=== PATIENT | female | born 1960 | race Caucasian/White ===

== ENCOUNTER 2023-09-25 10:27 | Emergency (ER) | payer OTHER, SELFPAY ==
[2023-09-25 11:07] VITALS: BP 98/61; PULSE 78; RESP 16; TEMP 36.4; O2SAT 97; BMI 22.8
--- NOTE | 2023-09-25 12:09 | CT_ITS ---
Patient: RO VERDUGO Facility:?[facility] RIS Patient ID:?[id number] Site Patient ID:?[id number]. Site :?[id number] Study:?CT-Abdomen/Pelvis W/ 67CC ISOVUE 370-09/25/2023 1:51:10 PM Ordering Physician:HEATH Final Report: Indication: Abdominal pain Technique: Volumetric multidetector CT images of the abdomen and pelvis were obtained after the administration of intravenous contrast. 67 cc Isovue 370 low osmolar intravenous contrast Comparison: None available. Findings: There is bibasilar atelectasis and parenchymal scar. The liver is normal in attenuation without intrahepatic biliary ductal dilatation. The portal vein is patent. The gallbladder is unremarkable without evidence of radiopaque calculus. There is no significant common biliary ductal dilatation or abrupt cut off. The spleen is normal in enhancement and size. The stomach and duodenum are grossly unremarkable. The pancreas is normal in enhancement without significant atrophy. The adrenal glands are unremarkable. The kidneys demonstrate preserved corticomedullary differentiation without evidence of obstructive uropathy. Moderate stool is seen throughout the colon with minimal distal colonic diverticulosis without definite evidence of diverticulitis. There is minimal fluid-filled mid to distal small bowel which may represent mild enteritis change. The appendix is unremarkable. There is no significant mesenteric, retroperitoneal, or pelvic sidewall lymph nodes. The aorta is nonaneurysmal. There is no significant atherosclerotic disease appreciated. The solid pelvic viscera are grossly unremarkable. There is no free fluid or free air. There is mild diastasis of the rectus musculature with a small fat containing umbilical hernia. The lumbar vertebral body heights are grossly maintained in satisfactory alignment without evidence of displaced fracture, lytic or blastic lesion. Impression: Mild nonspecific fluid-filled central small bowel likely representing minimal enteritis change. Otherwise, no additional acute intra-abdominal abnormalities identified. Please note that all CT scans at this facility use dose modulation, iterative reconstruction, and/or weight-based dosing when appropriate to reduce radiation dose to as low as reasonably achievable. Dictated by Trenton Humphries MD @ 09/25/2023 2:02:01 PM Signed by:?Trenton Humphries MD @09/25/2023 2:02:01 PM (Electronic Signature)
--- NOTE | 2023-09-25 12:11 | ED.GENADULT ---
HPI - General Adult General Chief complaint: Urogenital Problems, Female Stated complaint: Vaginal pain Time Seen by Provider: 09/25/23 10:48 History of Present Illness HPI narrative: This 62-year-old female comes in with her and son. She has significant dementia and is a very poor historian. She and her return from floor to a few days ago. Her son states that she seems bloated in her abdomen and has been complaining of occasional abdominal pain and dysuria with vaginal itching. At the time of my initial visit the patient states that she is feeling normal and does not have any symptoms but it is clear that she has significant dementia. Related Data Previous Rx's Medication Instructions Recorded conjugated estrogens 0.625 mg/gram 0.625 mg vaginal DAILY #30 grams 09/25/23 vaginal cream (Premarin) Allergies Allergy/AdvReac Type Severity Reaction Status Date / Time No Known Drug Allergies Allergy Verified 09/25/23 13:47 Review of Systems Status of ROS: Reports: unobtainable due to mental status PFSH PFS Social History Smoking Status: Never smoker Do you use any of these nicotine containing products: None Second hand tobacco smoke exposure: No How often do you have a drink containing alcohol: never AUDIT-C Alcohol total score: 0 Non-prescribed substance use: denies use Exam Narrative: Exam Narrative: Constitutional: Well-developed, well-nourished, no acute distress. HEENT: Normocephalic, atraumatic. Neck: Normal range of motion. Nontender. Supple. Heart: Regular. No murmurs. Normal rate. Intact distal pulses. Lungs: Clear to auscultation. No chest discomfort. No wheezes, rhonchi, or rales. Abdomen: Normal bowel sounds. Nontender. No rebound tenderness. Abdomen seems mildly distended. She has no discomfort when palpating deeply throughout her abdomen. Genitalia: Deferred. Back: No midline tenderness. Normal range of motion. Extremities: Normal range of motion. No injury. Skin: Intact. No rash. Warm. No erythema or pallor. Neurologic: No altered sensation. No weakness. Alert and oriented. Psychiatric: Dementia. Nursing notes and vitals signs are reviewed. Const: Vital Signs, click to edit/add: Vital Signs - 24 hr 09/25/23 11:07 09/25/23 14:15 Temperature 97.5 F L Pulse Rate [Pulse Oximeter] 78 65 Respiratory Rate 16 18 Blood Pressure [Ri ght Upper Arm] 98/61 125/67 Pulse Oximetry 97 99 Oxygen Delivery Me thod Room Air Room Air Course Vital Signs Vital signs: Initial Vital Signs Temperature 97.5 F L 09/25/23 11:07 Temperature Source Temporal Artery Scan 09/25/23 11:07 Pulse Rate 78 09/25/23 11:07 Respiratory Rate 16 09/25/23 11:07 Blood Pressure 98/61 09/25/23 11:07 Blood Pressure Mean 73 09/25/23 11:07 Blood Pressure Position Sitting 09/25/23 11:07 Pulse Oximetry 97 09/25/23 11:07 Oxygen Delivery Method Room Air 09/25/23 11:07 Vital Signs Temperature 97.5 F L 09/25/23 11:07 Pulse Rate 78 09/25/23 11:07 Respiratory Rate 16 09/25/23 11:07 Blood Pressure 98/61 09/25/23 11:07 Pulse Oximetry 97 09/25/23 11:07 Oxygen Delivery Method Room Air 09/25/23 11:07 Temperature 97.5 F L 09/25/23 11:07 Pulse Rate 65 09/25/23 14:15 Respiratory Rate 18 09/25/23 14:15 Blood Pressure 125/67 09/25/23 14:15 Pulse Oximetry 99 09/25/23 14:15 Oxygen Delivery Method Room Air 09/25/23 14:15 Medical Decision Making [facility] Narrative Medical decision making narrative: This patient comes in with other family members concerned about some possibility with her abdomen or urinary tract or vaginal dryness and itching. The patient has significant dementia and is a very poor historian. A CT scan with IV contrast was obtained and returns with no significant acute findings. Urinalysis also is reassuring as are blood tests. This patient likely has some vaginal dryness and may benefit from an estrogen cream. I did provide a prescription for this but encouraged her to follow-up with her primary physician in this regard. Lab Data Labs: Lab Results 09/25/23 09/25/23 Range/Units 12:24 13:50 WBC 5.50 (4.50-11.00) K/uL RBC 4.27 (4.00-5.20) m/uL Hgb 13.0 (12.0-16.0) gm/dL Hct 41.1 (33.0-51.0) % MCV 96 (80-100) fL MCH 30 (26-34) pg MCHC 32 (32-36) gm/dL RDW Coeff of Raghavendra 11.8 (11.5-15.5) % Plt Count 182 (140-440) K/uL Neut % (Auto) 56.9 (42.0-72.0) % Lymph % (Auto) 28.0 (20-44) % Lane % (Auto) 11.3 H (0.0-11.0) % Eos % (Auto) 3.1 (0.0-7.0) % Baso % (Auto) 0.5 (0.0-3.0) % Neut # (Auto) 3.13 (1.7-7.0) K/uL Lymph # (Auto) 1.54 (0.90-2.90) K/uL Lane # (Auto) 0.60 (0.00-0.90) K/UL Eos # (Auto) 0.17 (0.00-0.50) K/uL Baso # (Auto) 0.03 (0.00-0.30) K/uL Abs Immat Gran (auto) 0.01 (0.00-0.30) K/uL Imm/Tot Granulo (auto) 0.2 % Sodium 141 (135-149) mmol/L Potassium 4.2 (3.6-5.1) mmol/L Chloride 106 (96-114) mmol/L Carbon Dioxide 33 H (20-32) mmol/L Anion Gap 2 L (7-15) mEq/L BUN 25 (7-30) mg/dL Creatinine 0.7 (0.5-1.5) mg/dL Estimated Creat Clear 51.14 Estimated GFR 97 ml/min Glucose 87 (60-115) mg/dL Calcium 9.3 (8.4-10.6) mg/dL Urine Color Yellow (Yellow) Urine Appearance Clear (Clear) Urine pH 7.0 (5.0-8.5) Ur Specific [place] 1.020 (1.000-1.030) Urine Protein Negative (Negative) Urine Glucose (UA) Negative (Negative) Urine Ketones Negative (Negative) Urine Blood Negative (Negative) Urine Nitrite Negative (Negative) Urine Bilirubin Negative (Negative) Urine Urobilinogen 0.2 (0.2-1.0) Ur Leukocyte Esterase Negative (Negative) Urine RBC 0-2 (0-2) Urine WBC 0-2 (0-5) Ur Squamous Epith Cells Few (None-Few) Urine Bacteria None (None) Discharge Plan Discharge Clinical Impression: Vaginitis Patient Disposition: Home w/ Parent or Adult Condition: Stable Additional Instructions: Use medicine as prescribed. Follow up with primary physician for ongoing management. Return if worsening. Prescriptions: New Premarin 0.625 mg/gram cream 0.625 mg vaginal DAILY Qty: 30 2RF Rx Instructions: off 5 days; repeat cycle Follow Up/Referrals: Dasia Mcghee PA-C [Primary Care Provider] - Stand Alone Forms: [employer] Info Instructions
[2023-09-25 12:33] LABS: Basophils Absolute Auto 0.03 K/uL (0.00-0.30); Basophils Percent Auto 0.5 % (0.0-3.0); Eosinophils Absolute Auto 0.17 K/uL (0.00-0.50); Eosinophils Percent Auto 3.1 % (0.0-7.0); Hematocrit 41.1 % (33.0-51.0); Immature Granulocytes Abs Auto 0.01 K/uL (0.00-0.30); Immature Granulocytes Pct Auto 0.2 %; Lymphocytes Absolute Auto 1.54 K/uL (0.90-2.90); Mean Corpuscular HGB Conc 32 gm/dL (32-36); Mean Corpuscular Hemoglobin 30 pg (26-34); Mean Corpuscular Volume 96 fL (80-100); Monocytes Percent Auto 11.3 % (0.0-11.0); Neutrophils Absolute Auto 3.13 K/uL (1.7-7.0); Neutrophils Percent Auto 56.9 % (42.0-72.0); Platelet Count* 182 K/uL (140-440); RDW Coefficient of Variation % 11.8 % (11.5-15.5); Red Blood Count 4.27 m/uL (4.00-5.20)
[2023-09-25 12:36] LABS: Slide Review Reflex No
[2023-09-25 12:47] LABS: Chloride* 106 mmol/L (96-114); Potassium* 4.2 mmol/L (3.6-5.1); Sodium* 141 mmol/L (135-149)
[2023-09-25 12:50] LABS: Anion Gap 2 mEq/L (7-15); Blood Urea Nitrogen* 25 mg/dL (7-30); Carbon Dioxide* 33 mmol/L (20-32); Creatinine* 0.7 mg/dL (0.5-1.5); Est. Creatinine Clearance* 51.14; Estimated Glomerular Filt Rate 97 ml/min; Glucose* 87 mg/dL (60-115)
[2023-09-25 12:51] LABS: Calcium* 9.3 mg/dL (8.4-10.6)
[2023-09-25 13:57] LABS: Appearance Urine Clear (Clear); Bilirubin Urine Negative (Negative); Blood Urine Negative (Negative); Color Urine Yellow (Yellow); Glucose Urine Negative (Negative); Ketones Urine Negative (Negative); Leukocyte Esterase Urine Negative (Negative); Nitrite Urine Negative (Negative); Protein Urine Negative (Negative); Urobilinogen Urine 0.2 (0.2-1.0)
[2023-09-25 14:08] LABS: RBC Urine 0-2 (0-2); Squamous Epithelial Cell Urine Few (None-Few); WBC Urine 0-2 (0-5)
[2023-09-25 14:15] VITALS: BP 125/67; PULSE 65; RESP 18; O2SAT 99
== END 2023-09-25 14:54 | disposition home or self-care (01) ==
PROVIDERS: Emergency Provider Emergency Medicine Emergency Medical Services; PCP Physician Assistant Medical
DX: N76.0 Acute vaginitis (principal)
CPT/HCPCS: 36415; 74177; 80048; 81001; 85025; 99284; Q9967

== ENCOUNTER 2024-02-18 13:04 | Emergency (ER) | payer OTHER, SELFPAY ==
[2024-02-18] VITALS (8 sets, daily range): BP systolic 106–133; BP diastolic 71–114; PULSE 74–83; RESP 18; TEMP 36.6; O2SAT 94–100
--- NOTE | 2024-02-18 15:03 | CRLHL7_ITS ---
For Patients: As a result of the Century Cures Act, medical imaging exams and procedure reports are released immediately into your electronic medical record. You may view this report before your referring provider. If you have questions, please contact your health care provider. INDICATION: unsteady, falling. Does have frontal temporal dementia TECHNIQUE: CT of the head without contrast. Coronal and sagittal reformats. Bone and soft tissue algorithms. COMPARISON: No prior studies available for comparison at this institution. FINDINGS: No acute intracranial hemorrhage or extra-axial collection. No evidence of acute cortical infarction. No mass effect or midline shift. Moderate generalized parenchymal volume loss and marked atrophy of the bilateral hippocampi and anterior temporal lobes. Moderate regions of decreased attenuation within the periventricular and subcortical white matter of both cerebral hemispheres most likely reflect chronic microvascular ischemic disease and age related change in this patient. Vascular calcifications within the carotid siphons. Orbital contents are normal. No calvarial fractures. No lytic or sclerotic osseous lesions within the calvarium or skull base. Mild mucosal thickening in the left frontal sinus. Scalp and other imaged soft tissue structures are normal. Mastoid air cells are clear. Leftward deviation of the nasal septum. IMPRESSION: 1. No acute intracranial abnormality. 2. Moderate generalized parenchymal volume loss and marked atrophy of the bilateral hippocampi and anterior temporal lobes. 3. Moderate chronic small-vessel ischemic changes. Please note that all CT scans at this facility use dose modulation, iterative reconstruction, and/or weight-based dosing when appropriate to reduce radiation dose to as low as reasonably achievable. Dictated by Celestino Lipscomb MD @ 02/18/2024 4:23:29 PM (Electronically Signed)
--- NOTE | 2024-02-18 15:03 | CRLHL7_ITS ---
For Patients: As a result of the Century Cures Act, medical imaging exams and procedure reports are released immediately into your electronic medical record. You may view this report before your referring provider. If you have questions, please contact your health care provider. INDICATION: Weakness, unsteady, falling, frontotemporal dementia, acute stroke. TECHNIQUE: CTA neck with contrast bolus tracking, 3D angiographic rendering using maximum intensity projection (MIP) and images permanently archived. FINDINGS: There is no significant carotid artery stenosis or dissection. There is no significant vertebral artery stenosis or dissection. The soft tissues of the neck are within normal limits. The cervical spine is in normal alignment. IMPRESSION: Unremarkable neck CTA. No significant carotid or vertebral artery stenosis or dissection. Please note that all CT scans at this facility use dose modulation, iterative reconstruction, and/or weight-based dosing when appropriate to reduce radiation dose to as low as reasonably achievable. Dictated by Nathanael Burnett MD @ 02/19/2024 4:10:04 PM (Electronically Signed)
--- NOTE | 2024-02-18 15:03 | CRLHL7_ITS ---
For Patients: As a result of the Century Cures Act, medical imaging exams and procedure reports are released immediately into your electronic medical record. You may view this report before your referring provider. If you have questions, please contact your health care provider. INDICATION: Weakness. TECHNIQUE: Chest 2 views. COMPARISON: None. FINDINGS: Cardiovascular and mediastinum: Heart size is normal. Unremarkable mediastinum. Lungs and pleural spaces: Lungs are clear. No sign of infiltrate or mass. No sign of pleural effusion. No pneumothorax. Bones and soft tissues: No significant findings. IMPRESSION: Negative chest. Dictated by Mart Lopez MD @ 02/18/2024 5:13:04 PM (Electronically Signed)
--- NOTE | 2024-02-18 15:03 | CRLHL7_ITS ---
For Patients: As a result of the Century Cures Act, medical imaging exams and procedure reports are released immediately into your electronic medical record. You may view this report before your referring provider. If you have questions, please contact your health care provider. INDICATION: Weakness, unsteady, falling, frontotemporal dementia, acute stroke. TECHNIQUE: CTA head with contrast bolus tracking, 3D angiographic rendering using maximum intensity projection (MIP) and images permanently archived. FINDINGS: There is normal opacification of the intracranial vasculature. There is no large vessel occlusion. No aneurysm is identified. IMPRESSION: Unremarkable head CTA. Please note that all CT scans at this facility use dose modulation, iterative reconstruction, and/or weight-based dosing when appropriate to reduce radiation dose to as low as reasonably achievable. Dictated by Nathanael Burnett MD @ 02/19/2024 4:09:03 PM (Electronically Signed)
--- NOTE | 2024-02-18 15:04 | CRLHL7_ITS ---
For Patients: As a result of the Century Cures Act, medical imaging exams and procedure reports are released immediately into your electronic medical record. You may view this report before your referring provider. If you have questions, please contact your health care provider. INDICATION: Concern for stroke. History of frontotemporal dementia. TECHNIQUE: Multiplanar multisequence noncontrast MR images of the brain. Comparison CT brain 02/18/2024. FINDINGS: Mild to moderate diffuse cerebral volume loss. There is severe atrophy of the anterior temporal lobes associated with ex vacuo dilatation of the temporal horns. No mass effect or midline shift. Scattered FLAIR hyperintensities in the supratentorial white matter, typical for mild chronic microvascular ischemic changes. No intracranial hemorrhage or pathologic extra-axial fluid collection. No diffusion restriction to suggest acute infarction. The major arterial flow voids of the skull base are preserved. Globes are symmetric. Mild paranasal sinus mucosal thickening. Trace right mastoid fluid. IMPRESSION: 1. No acute intracranial abnormality. 2. [id number] diffuse cerebral volume loss. Severe atrophy of the anterior temporal lobes, compatible with history of frontotemporal dementia. 3. Mild chronic microvascular ischemic changes. Dictated by Niko Forde MD @ 02/18/2024 6:51:30 PM (Electronically Signed)
[2024-02-18 15:33] LABS: Appearance Urine Clear (Clear); Bilirubin Urine Negative (Negative); Blood Urine Negative (Negative); Color Urine Yellow (Yellow); Glucose Urine Negative (Negative); Ketones Urine Negative (Negative); Leukocyte Esterase Urine Negative (Negative); Nitrite Urine Negative (Negative); Protein Urine Negative (Negative); Urobilinogen Urine 0.2 (0.2-1.0)
[2024-02-18] MEDS: LACTATED RINGERS 1000 ML 1,000 ML IV (16:05)
[2024-02-18 16:12] LABS: RBC Urine 0-2 (0-2); Starch Urine Moderate
[2024-02-18 16:12] LABS: Basophils Percent Auto 0.6 % (0.0-3.0); Eosinophils Percent Auto 0.3 % (0.0-7.0); Hematocrit 41.1 % (33.0-51.0); Hemoglobin* 13.3 gm/dL (12.0-16.0); Immature Granulocytes Pct Auto 0.3 %; Lymphocytes Percent Auto 28.2 % (20-44); Mean Corpuscular HGB Conc 32 gm/dL (32-36); Mean Corpuscular Hemoglobin 30 pg (26-34); Mean Corpuscular Volume 92 fL (80-100); Monocytes Percent Auto 13.9 % (0.0-11.0); Neutrophils Percent Auto 56.7 % (42.0-72.0); Platelet Count* 132 K/uL (140-440); Red Blood Count 4.46 m/uL (4.00-5.20)
[2024-02-18 16:14] LABS: Slide Review Reflex No
--- NOTE | 2024-02-18 16:16 | ED_ITS ---
HPI - General Adult General Date Seen: 02/18/24 Chief complaint: Weakness Stated complaint: weakness/falling Time Seen by Provider: 02/18/24 14:47 Source: family (Sister) and other ([employer]) Mode of arrival: ambulatory Limitations: altered mental status History of Present Illness HPI narrative: Patient is a 63-year-old female with frontotemporal dementia brought in by her sister and forestry and wildlife manager for concerns of stroke-like symptoms for the past 3 days. Her forestry and wildlife manager and sister both state that they have noticed increased weakness and unsteady gait bleeding off to the left side have also noticed some drooling from the left side of her mouth that is abnormal for her. She still eating and drinking normally. They state they have never noticed on quick worsening symptoms like this before. She does see Neurology through [facility]. Patient is denying any pain at this time. They do note she seemed to walk better into the emergency department and she was prior to arriving. They also noted her pulse out fast and have her come to be. She was also then cool to the touch and clammy. The patient is unable answer questions due to her dementia and has difficulty following commands. Related Data Previous Rx's ?Medication ?Instructions ?Recorded conjugated estrogens 0.625 mg/gram 0.625 mg vaginal DAILY #30 grams 09/25/23 vaginal cream (Premarin) Allergies Allergy/AdvReac Type Severity Reaction Status Date / Time No Known Drug Allergies Allergy Verified 02/18/24 16:55 Review of Systems Status of ROS: Reports: unobtainable due to medical condition [facility] Social History Smoking Status: Never smoker Do you use any of these nicotine containing products: None Second hand tobacco smoke exposure: No How often do you have a drink containing alcohol: never How often do you have six or more drinks on one occasion: Never AUDIT-C Alcohol total score: 0 Non-prescribed substance use: denies use Exam Narrative: Exam Narrative: Const: Well-nourished, Well-developed, in no distress Eyes: PERRL, no conjunctival injection, and symmetrical lids HENT: Atraumatic external nose and ears. Moist mucous membranes. Neck: Symmetric, trachea midline, No thyromegaly. CVS: RRR, No murmurs or gallops. Peripheral pulses 2+ and equal in all extremities RESP: Unlabored respiratory effort. Clear to auscultation bilaterally. GI: Nontender/Nondistended, No rebound or guarding. MSK:Extremities w/o deformity, Normal Active ROM Skin: Warm, Dry. No rashes or lesions. Neuro: Normal Muscle tone, his neuro exam difficult to complete due to patient having issues following commands. Normal heel to erazo. Cranial nerves 2-12 within normal limits. Normal muscle strength upper and lower extremities. Patient states sensation is normal in bilateral upper and lower extremities. Unable to follow commands for [id number] test. Gait is normal. Psych: Awake, Alert, & Oriented to self only. Appropriate mood and affect. Const: Vital Signs, click to edit/add: Vital Signs - 24 hr 02/18/24 13:27 02/18/24 16:58 02/18/24 16:59 Temperature 97.9 F Pulse Rate 78 77 Pulse Rate [Right Pulse Oximeter] 83 Respiratory Rate 18 Blood Pressure 132/91 H Blood Pressure [Ri ght Upper Arm] 106/71 Pulse Oximetry 96 94 99 Oxygen Delivery Me thod Room Air 02/18/24 17:00 02/18/24 17:34 02/18/24 18:01 Temperature Pulse Rate 77 74 Pulse Rate [Right Pulse Oximeter] Respiratory Rate 18 Blood Pressure Blood Pressure [Ri ght Upper Arm] Pulse Oximetry 96 100 Oxygen Delivery Me thod 02/18/24 18:02 Temperature Pulse Rate 75 Pulse Rate [Right Pulse Oximeter] Respiratory Rate Blood Pressure 133/114 H Blood Pressure [Ri ght Upper Arm] Pulse Oximetry 97 Oxygen Delivery Me thod Course Vital Signs Vital signs: Initial Vital Signs Temperature 97.9 F 02/18/24 13:27 Temperature Source Temporal Artery Scan 02/18/24 13:27 Pulse Rate 83 02/18/24 13:27 Pulse Rhythm Regular 02/18/24 13:27 Respiratory Rate 18 02/18/24 13:27 Blood Pressure 106/71 02/18/24 13:27 Blood Pressure Mean 82 02/18/24 13:27 Blood Pressure Position Sitting 02/18/24 13:27 Pulse Oximetry 96 02/18/24 13:27 Oxygen Delivery Method Room Air 02/18/24 13:27 Vital Signs Temperature 97.9 F 02/18/24 13:27 Pulse Rate 83 02/18/24 13:27 Respiratory Rate 18 02/18/24 13:27 Blood Pressure 106/71 02/18/24 13:27 Pulse Oximetry 96 02/18/24 13:27 Oxygen Delivery Method Room Air 02/18/24 13:27 Temperature 97.9 F 02/18/24 13:27 Pulse Rate 75 02/18/24 18:02 Respiratory Rate 18 02/18/24 17:34 Blood Pressure 133/114 H 02/18/24 18:02 Pulse Oximetry 97 02/18/24 18:02 Oxygen Delivery Method Room Air 02/18/24 13:27 Medications Administered Medications: Discontinued Medications Generic Name Dose Route Start Last Admin Trade Name [place] PRN Reason Stop Dose Admin Lactated Ringer's 1,000 mls @ 1,000 mls/hr 02/18/24 15:02 02/18/24 17:30 Lactated Ringers 1000 Ml IV 02/18/24 16:01 Infused .Q1H ONE Infusion Medical Decision Making MDM Narrative Medical decision making narrative: Patient is a 63-year-old female presenting to emergency department for concerns of stroke-like symptoms going on for the past 3 days. She has all the window for any acute treatment in the as code stroke is not necessary. Also patient did walk around the entire department at one point try to find a bathroom and did not appear to be weak and seemed to have a normal gait. I will order a CT scan of the head along with CTA head and neck along the gumline of the brain without rule out any acute strokes that may need to have Neurology follow-up. Family is agreeable to this plan. Will also do urinalysis, chest x-ray, CMP, CBC, COVID/flu. 1 L fluids were given as patient like this is high risk of getting dehydrated causing symptoms. White blood cell came back slightly low at 3.3. This could be sign of a viral infection causing symptoms. CMP shows elevated AST and ALT. Previous results show liver enzymes within normal limits. Last results though were seen [facility] and were from 2019. Unsure if this is trending up of her LFTs over extended period of time. Total bilirubin within normal limits. EKG and troponin shows no concerning findings. Imaging all returned showing no concerning abnormalities as reviewed by myself and the radiologist. Lab Data Labs: Lab Results 09/24/24 09/24/24 09/24/24 Range/Units 15:18 15:58 18:22 WBC 3.30 L (4.50-11.00) K/uL RBC 4.46 (4.00-5.20) m/uL Hgb 13.3 (12.0-16.0) gm/dL Hct 41.1 (33.0-51.0) % MCV 92 (80-100) fL MCH 30 (26-34) pg MCHC 32 (32-36) gm/dL RDW Coeff of Raghavendra 12.0 (11.5-15.5) % Plt Count 132 L (140-440) K/uL Neut % (Auto) 56.7 (42.0-72.0) % Lymph % (Auto) 28.2 (20-44) % [place] % (Auto) 13.9 H (0.0-11.0) % Eos % (Auto) 0.3 (0.0-7.0) % Baso % (Auto) 0.6 (0.0-3.0) % Neut # (Auto) 1.90 (1.7-7.0) K/uL Lymph # (Auto) 0.90 (0.90-2.90) K/uL [place] # (Auto) 0.50 (0.00-0.90) K/UL Eos # (Auto) 0.00 (0.00-0.50) K/uL Baso # (Auto) 0.00 (0.00-0.30) K/uL Abs Immat Gran (auto) 0.00 (0.00-0.30) K/uL Imm/Tot Granulo (auto) 0.3 % Sodium 133 L (135-149) mmol/L Potassium 4.2 (3.6-5.1) mmol/L Chloride 96 (96-114) mmol/L Carbon Dioxide 29 (20-32) mmol/L Anion Gap 8 (7-15) mEq/L BUN 21 (7-30) mg/dL Creatinine 0.8 (0.5-1.5) mg/dL Estimated GFR 82 ml/min Glucose 105 (60-115) mg/dL Calcium 9.1 (8.4-10.6) mg/dL Total Bilirubin 0.1 (0.1-1.5) mg/dL AST 111 H (12-35) U/L ALT 112 H (4-35) U/L Alkaline Phosphatase 59 (40-150) U/L Troponin I < 0.01 L < 0.01 L (0.01-0.04) ng/mL Total Protein 7.4 (6.0-8.3) g/dL Albumin 4.6 (3.3-5.0) g/dL Urine Color Yellow (Yellow) Urine Appearance Clear (Clear) Urine pH 6.0 (5.0-8.5) Ur Specific [place] 1.020 (1.000-1.030) Urine Protein Negative (Negative) Urine Glucose (UA) Negative (Negative) Urine Ketones Negative (Negative) Urine Blood Negative (Negative) Urine Nitrite Negative (Negative) Urine Bilirubin Negative (Negative) Urine Urobilinogen 0.2 (0.2-1.0) Ur Leukocyte Esterase Negative (Negative) Urine RBC 0-2 (0-2) Urine WBC 2-5 (0-5) Ur Squamous Epith Cells None (None-Few) Urine Bacteria None (None) Urine Starch Moderate A (None) SARS-CoV-2 (PCR) Negative SARS-CoV-2 (Negative) Influenza Type A (PCR) Negative PCR FLU A (Negative) Influenza Type B (PCR) Negative PCR FLU B (Negative) Imaging Data CT scan head: Attestation: I have reviewed the pertinent imaging results. Radiologist's impression: 1. No acute intracranial abnormality. 2. Moderate generalized parenchymal volume loss and marked atrophy of the bilateral hippocampi and anterior temporal lobes. 3. Moderate chronic small-vessel ischemic changes. Please note that all CT scans at this facility use dose modulation, iterative reconstruction, and/or weight-based dosing when appropriate to reduce radiation dose to as low as reasonably achievable. Dictated by Celestino Lipscomb MD @ 02/18/2024 4:23:29 PM Chest x-ray: Attestation: I have reviewed the pertinent imaging results. Radiologist's impression: Negative chest. Dictated by Mart Lopez MD @ 02/18/2024 5:13:04 PM MRI brain: Attestation: I have reviewed the pertinent imaging results. Radiologist's impression: 1. No acute intracranial abnormality. 2. [id number] diffuse cerebral volume loss. Severe atrophy of the anterior temporal lobes, compatible with history of frontotemporal dementia. 3. Mild chronic microvascular ischemic changes. Dictated by Niko Forde MD @ 02/18/2024 6:51:30 PM CTA head: Attestation: I have reviewed the pertinent imaging results. Radiologist's impression: Preliminary Report: 1. No evidence of proximal artery occlusion, high grade stenosis, aneurysm, dissection, or vascular malformation. 2. Final report per neurointerventional radiology service. Read by:?Celestino Lipscomb MD @02/18/2024 7:39:54 PM CTA neck: Attestation: I have reviewed the pertinent imaging results. Radiologist's impression: Preliminary Report: 1. No evidence of proximal artery occlusion, high grade stenosis, aneurysm, dissection, or vascular malformation. 2. Final report per neurointerventional radiology service. Read by:?Celestino Lipscomb MD @02/18/2024 7:40:05 PM ECG Data Attestation: I personally reviewed and interpreted this ECG as follows: Prior ECG tracings: not available for review Interpretation: Normal sinus rhythm with a rate 76 beats per minute, normal intervals, normal axis, no ST or T-wave abnormalities Discharge Plan Discharge Clinical Impression: Frontotemporal dementia, Balance problem Patient Disposition: Home w/ Parent or Adult Condition: Stable Instructions: How to Transfer a Person Safely (DC) Additional Instructions: Have close follow-up with her neurologist. Recommend calling them in the morning to schedule an appointment as soon as possible. Return to emergency department for any new or worsening symptoms. Prescriptions: No Action Premarin 0.625 mg/gram cream 0.625 mg vaginal DAILY Qty: 30 2RF Rx Instructions: off 5 days; repeat cycle Follow Up/Referrals: Dasia Mcghee PA-C [Primary Care Provider] - Stand Alone Forms: MyHealth Info Instructions
[2024-02-18 16:27] LABS: Albumin* 4.6 g/dL (3.3-5.0); Chloride* 96 mmol/L (96-114); Potassium* 4.2 mmol/L (3.6-5.1); Sodium* 133 mmol/L (135-149)
[2024-02-18 16:30] LABS: Alanine Aminotransferase* 112 U/L (4-35); Alkaline Phosphatase* 59 U/L (40-150); Anion Gap 8 mEq/L (7-15); Aspartate Amino Transferase* 111 U/L (12-35); Bilirubin Total* 0.1 mg/dL (0.1-1.5); Blood Urea Nitrogen* 21 mg/dL (7-30); Carbon Dioxide* 29 mmol/L (20-32); Creatinine* 0.8 mg/dL (0.5-1.5); Estimated Glomerular Filt Rate 82 ml/min; Glucose* 105 mg/dL (60-115); Total Protein* 7.4 g/dL (6.0-8.3)
[2024-02-18 16:31] LABS: Calcium* 9.1 mg/dL (8.4-10.6)
[2024-02-18 16:45] LABS: Troponin I* < 0.01 ng/mL (0.01-0.04)
[2024-02-18 17:05] LABS: PCR FLU A Negative PCR FLU A (Negative); PCR FLU B Negative PCR FLU B (Negative); SARS PCR* Negative SARS-CoV-2 (Negative)
[2024-02-18 19:14] LABS: Troponin I* < 0.01 ng/mL (0.01-0.04)
== END 2024-02-18 20:00 | disposition home or self-care (01) ==
PROVIDERS: Emergency Provider Student in an Organized Health Care Education/Training Program; PCP Physician Assistant Medical
DX: G31.09 Other frontotemporal neurocognitive disorder (principal); F02.80 Dementia in other diseases classified elsewhere, unspecified severity, without behavioral disturbance, psychotic disturbance, mood disturbance, and anxiety; R26.89 Other abnormalities of gait and mobility
CPT/HCPCS: 36415; 70450; 70496; 70498; 70551; 71046; 80053; 81001; 84484; 85025; 87631; 93005; 96360; 99283; 99284; 99285; J7120; Q9967